=== PATIENT | female | born 1970 | race Caucasian/White ===

== ENCOUNTER 2017-05-28 12:17 | Emergency (ER) | payer OTHER ==
[~2017-05-28] VITALS: Ht 175.3 cm; Wt 79.4 kg
[2017-05-28] MEDS ORDERED: ZANTAC 150MG T150 MG PO (13:11)
[2017-05-28] MEDS ORDERED: MEDROL2 MG PO (13:12)
[2017-05-28] MEDS ORDERED: MEDROL DOSPAK21 TAB PO (13:49)
[2017-05-28 14:11] VITALS: BP 120/78
== END 2017-05-28 13:54 | disposition home or self-care (01) ==
LOC: ER 12:17
DX: L23.7 Allergic contact dermatitis due to plants, except food (principal)

== ENCOUNTER 2021-05-21 09:22 | Emergency (ER) | payer OTHER ==
[~2021-05-21] VITALS: Ht 170.2 cm; Wt 88.5 kg
[~2021-05-21 09:22] MED LIST: MEDROL DOSPAK21 TAB PO; MEDROL2 MG PO; ZANTAC 150MG T150 MG PO
[2021-05-21 09:27] VITALS: BP 125/84
[2021-05-21] MEDS ORDERED: OFLOXACIN5 M1 RT. EAR (09:38)
== END 2021-05-21 09:56 | disposition home or self-care (01) ==
LOC: ER 09:22
DX: H60.91 Unspecified otitis externa, right ear (principal); Z94.7 Corneal transplant status; Z79.899 Other long term (current) drug therapy; Z97.4 Presence of external hearing-aid